=== PATIENT | male | born 1955 | race Caucasian/White ===

== ENCOUNTER 2022-03-11 09:07 | Emergency (ER) | payer OTHER ==
[2022-03-11 09:53] LABS: HEMOGLOBIN 16.3 gm/dl (14.0-17.5); RED BLOOD COUNT 5.28 M/UL (4.20-5.50); WHITE BLOOD COUNT 12.1 K/UL (4.5-11.0)
[2022-03-11 10:17] LABS: BUN/CREATININE RATIO 15 (0-10)
[2022-03-11] MEDS ORDERED: PROTONIX20 MG PO (13:51)
== END 2022-03-11 14:56 | disposition home or self-care (01) ==
LOC: ER1 09:07
PROVIDERS: Emergency Medicine
DX: R10.10 Upper abdominal pain, unspecified (principal); R11.2 Nausea with vomiting, unspecified; R10.816 Epigastric abdominal tenderness; F17.200 Nicotine dependence, unspecified, uncomplicated
CPT/HCPCS: 80053; 81001; 83690; 85025; 99284; Q9967